=== PATIENT | female | born 1955 | race African-American/Black ===

== ENCOUNTER 2017-01-04 18:31 | Emergency (ER) | payer MEDICARE, OTHER ==
[~2017-01-04] VITALS: Ht 160 cm; Wt 77.7 kg
[2017-01-04 18:45] VITALS: Ht 160 cm; Wt 77.7 kg
[2017-01-04] MEDS ORDERED: ONDANSETRON (ODT) 4 MG TAB ODT STA (20:40)
[2017-01-04] MEDS ORDERED: KETOROLAC 30 MG INJ IM STA (20:40)
[2017-01-04] MEDS ORDERED: HYDROCODONE/APAP (5/325) TAB PO ONE (21:00)
--- NOTE | 2017-01-04 21:23 | RADRPT ---
PROCEDURE: XR Lumbar Spine. CLINICAL INDICATION: Back pain. TECHNIQUE: Three views. AP, lateral and cone-down lateral view of the lumbar spine were obtained. COMPARISON: No prior studies are available for comparison. FINDINGS: There is lumbar scoliosis convex left. Alignment is otherwise normal. There is no fracture. There is no lytic or blastic lesion. The disk height is normal. There has been prior abdominal surgery with multiple clips noted. Emerson are present in the gastric region. IMPRESSION: 1. Lumbar scoliosis convex left. 2. Prior surgery. 3. Otherwise unremarkable images of the lumbar spine. RPTAT: QQ .Bjorn Palacios MD, MD Date Time Electronically viewed and signed by .Bjorn Palacios MD, MD on 01/04/2017 21:22 .R/
[2017-01-04] MEDS ORDERED: CYCL-319 PO (21:27)
[2017-01-04] MEDS ORDERED: NAPR-260 PO (21:27)
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
== END 2017-01-04 21:34 | disposition home or self-care (01) ==
LOC: FTE 18:31
DX: S39.012A Strain of muscle, fascia and tendon of lower back, initial encounter (principal); V49.40XA Driver injured in collision with unspecified motor vehicles in traffic accident, initial encounter
CPT/HCPCS: 72100; 96372; 99284; J1885